=== PATIENT | female | born 1955 | race Two or more races ===

== ENCOUNTER 2024-10-01 18:14 | Emergency (ER) | payer OTHER ==
[~2024-10-01] VITALS: Ht 165.1 cm; Wt 70.8 kg
[2024-10-01] MEDS ORDERED: ACETAMINOPHEN ES 500 MG TABLET ONE (20:03)
[2024-10-01] MEDS: ACETAMINOPHEN ES 500 MG TABLET PO ONE (20:05)
[2024-10-01] MEDS ORDERED: ACET-2030 PO (21:21)
[2024-10-01 21:30] VITALS: BP 142/81; TEMP 97.9; O2SAT 98
== END 2024-10-01 21:44 | disposition home or self-care (01) ==
LOC: ER 18:21
DX: S01.511A Laceration without foreign body of lip, initial encounter (principal); R51.9 Headache, unspecified; E11.9 Type 2 diabetes mellitus without complications; I10 Essential (primary) hypertension; W18.39XA Other fall on same level, initial encounter; Y93.89 Activity, other specified; Y92.89 Other specified places as the place of occurrence of the external cause; Y99.8 Other external cause status
CPT/HCPCS: 70450-TC; 70486-TC; 72125-TC; 73564-TC

== ENCOUNTER 2025-06-29 15:55 | Emergency (ER) | payer MEDICAID, OTHER ==
[~2025-06-29] VITALS: Ht 162.6 cm; Wt 71.7 kg
[~2025-06-29 15:55] MED LIST: ACET-2030 PO
[2025-06-29 16:20] VITALS: TEMP 98.3
[2025-06-29] MEDS ORDERED: KETOROLAC TROMETHAMINE 15 MG/ML VIAL ONE (17:43)
[2025-06-29] MEDS: KETOROLAC TROMETHAMINE 15 MG/ML VIAL IV ONE (17:50)
[2025-06-29 17:51] LABS: PLATELET COUNT (AUTO) 444 K/uL (150-450); RED BLOOD CELL COUNT(AUTO) 4.36 MIL/uL (4.0-5.2); RED CELL DISTRIBUTION WIDTH 14.7 % (11.5-15.0); WHITE BLOOD COUNT (AUTO) 8.2 K/uL (4.3-11.0)
[2025-06-29] MEDS ORDERED: BENZONATATE 100 MG CAPSULE PO ONE (17:51)
[2025-06-29] MEDS: BENZONATATE 100 MG CAPSULE PO PRN (17:54)
[2025-06-29 18:02] LABS: CALCIUM, SERUM 9.0 mg/dL (8.5-10.1); CREATININE 0.4 mg/dL (0.6-1.3); SODIUM SERUM 138.0 mmol/L (136-145); UREA NITROGEN, BLOOD 6.0 mg/dL (7-18)
[2025-06-29] MEDS ORDERED: BENZ-13 PO (18:22)
[2025-06-29 19:23] VITALS: BP 140/79; O2SAT 96
== END 2025-06-29 18:50 | disposition home or self-care (01) ==
LOC: ER 16:06
DX: U07.1 COVID-19 (principal); I10 Essential (primary) hypertension
CPT/HCPCS: 99284; 96374; 71045; 85025; 80048; 36415; J1885